=== PATIENT | female | born 1990 | race Caucasian/White ===

== ENCOUNTER 2021-05-21 16:07 | Emergency (ER) | payer OTHER ==
[~2021-05-21] VITALS: Ht 167.6 cm; Wt 56.0 kg
[~2021-05-21 16:07] MED LIST: OXYC10TA46 PO; OXYC5TAB4 PO; flexeril
[2021-05-21 16:37] VITALS: BP 132/83
--- NOTE | 2021-05-21 17:05 | PHYS DOC ---
Past History Past Medical History: No Pertinent History, Other Additional Past Medical Histor: PTSD Past Surgical History: Tonsillectomy, Other Additional Past Surgical Histo: RIGHT FOOT SURGERY, Addnoids, right wrist Smoking: Non-smoker Alcohol Use: None Drug Use: None General Adult EDM: Chief Complaint: ABDOMINAL PAIN HPI: HPI: Patient is a 31-year-old female who arrives ambulatory to the emergency department complaining of lower abdominal/pelvic pain. Patient reports this pain is now been ongoing for 2 weeks. Patient was evaluated at her family practitioner's office earlier today whereby she had blood work and ultrasonography performed. Ultrasonography revealed the patient has a complex adnexal mass most consistent with pelvic inflammatory disease. Patient reports that she has considerable pain and is seeking further evaluation as the results were not returned before the patient left. Patient has laboratory results as well as her ultrasonography report on her phone. She denies any fevers. She further denies any upper abdominal pain, nausea or vomiting. Additionally she denies any recent sick contacts. She is awake, alert and uncomfortable appearing.. Review of Systems: Review of Systems: Constitutional: Denies fever or chills Eyes: Denies change in visual acuity HENT: Denies nasal congestion or sore throat Respiratory: Denies cough or shortness of breath Cardiovascular: Denies chest pain or edema GI: Reports lower abdominal pain. Denies ausea, vomiting, bloody stools or d iarrhea : Denies dysuria Musculoskeletal: Denies back pain or joint pain Integument: Denies rash Neurologic: Denies headache, focal weakness or sensory changes Endocrine: Denies polyuria or polydipsia Lymphatic: Denies swollen glands Psychiatric: Denies depression or anxiety Allergies: Allergies: Allergies Coded Allergies Type Severity Reaction Last Updated Verified No Known Drug Allergies 03/15/13 No Physical Exam: PE: Constitutional: Uncomfortable appearing. Well developed, well nourished, non- toxic appearance. [] HENT: Normocephalic, atraumatic, bilateral external ears normal, oropharynx moist, no oral exudates, nose normal. [] Eyes: PERRLA, EOMI, conjunctiva normal, no discharge. [] Neck: Normal range of motion, no tenderness, supple, no stridor. [] Cardiovascular:Heart rate regular rhythm, no murmur [] Lungs & Thorax: Bilateral breath sounds clear to auscultation [] Abdomen: Tenderness palpation of the left lower quadrant of the abdomen/pelvic area. Bowel sounds normal, soft, no masses, no pulsatile masses. [] Skin: Warm, dry, no erythema, no rash. [] Back: No tenderness, no CVA tenderness. [] Extremities: No tenderness, no cyanosis, no clubbing, ROM intact, no edema. [] Neurologic: Alert and oriented X 3, normal motor function, normal sensory fu nction, no focal deficits noted. [] Psychologic: Affect normal, judgement normal, mood normal. [] Current Patient Data: Vital Signs: Vital Signs Date Time Temp Pulse Resp B/P (MAP) Pulse Ox O2 Delivery O2 Flow Rate FiO2 05/21/21 16:37 20 132/83 (99) 95 Room Air EKG: EKG: [] Radiology/Procedures: Radiology/Procedures: [] Heart Score: C/O Chest Pain: No Risk Factors: Risk Factors: DM, Current or recent (<one month) smoker, HTN, HLP, family history of CAD, obesity. Risk Scores: Score 0 - 3: 2.5% MACE over next 6 weeks - Discharge Home Score 4 - 6: 20.3% MACE over next 6 weeks - Admit for Clinical Observation Score 7 - 10: 72.7% MACE over next 6 weeks - Early Invasive Strategies Course & Med Decision Making: Course & Med Decision Making I have reviewed the patient's laboratory work that she is provided on her mobile phone. Given these findings and the patient's visible discomfort I do believe she warrants admission with OB consultation. As such the patient has her primary care managed through and she has opted for transfer to . She has been accepted in transfer by Dr. Wu for admission and further evaluation. I did offer the patient ambulance transport and she stated she would have her sister provide transportation to . I have advised that she drive directly to and not stop for any reason. The patient understands and has agreed to follow his instructions. Upon bed availability the patient will be discharged and directed to for admission. She is nontoxic-appearing and awaiting transport. [] Dragon Disclaimer: Dragon Disclaimer: This electronic medical record was generated, in whole or in part, using a voice recognition dictation system. Departure Departure: Impression: Primary Impression: Pelvic inflammatory disease Disposition: 02 SHORT TERM HOSPITAL Condition: STABLE Referrals: ISMAEL VÁSQUEZ MD (PCP) ADALBERTO FREITAS DO May 21, 2021 17:05
[2021-05-21] MEDS ORDERED: HYDROcodone/APAP 5/325MG 1 TAB TABLET PO ONE (17:45)
== END 2021-05-21 19:45 | disposition short-term general hospital (02) ==
LOC: ER 16:07
DX: N73.9 Female pelvic inflammatory disease, unspecified (principal)
CPT/HCPCS: 99285